=== PATIENT | female | born 1955 | race African-American/Black ===

== ENCOUNTER 2020-08-20 21:43 | Inpatient (IN) | payer MEDICARE, OTHER ==
[~2020-08-20] VITALS: Ht 167.6 cm; Wt 90.7 kg
--- NOTE | 2020-08-20 22:32 | NUR ---
[facility] AND [employer] TO ER BED 14. AAOX3. NOT IN RESP DISTRESS. AMBULATORY. BROUGHT IN FOR DANGERS TO OTHERS. PER PD REPORT, PT WAS A BULGLARY SUSPECT. SHE WAS IN ANOTHER PERSON'S HOUSE AND CLAIMING THAT THE HOUSE IS HERS. PT WAS REPORTED TO BE TALKING TO HER SELF IN THE BACK OF THE AMBULANCE ENROUTE TO THE ER. PT ALSO VERBALIZED TO THE [employer] OFFICERS THAT SHE WANT TO HURT THE FINISHER DENTURE OF THE HOUSE. PT WAS PLAED EPIFANIO 5150 HOLD FOR DANGER TO OTHERS. HOLD WRITTEN ON 08/20/20 @ 2200. PT WAS GOWN AND WITHIN SIGHT OF THE SITTER. MD WAS AT THE BEDSIDE FOR EVAL. ORDERS RECEIVED, NOTED AND CARRIED OUT
[2020-08-20 22:35] LABS: BASOPHILS % (AUTO) 0.5 % (0.0-2.0); EOSINOPHILS % (AUTO) 3.2 % (0.0-6.0); HEMATOCRIT 39 % (33-45); HEMOGLOBIN 12.6 g/dL (11.5-14.8); LYMPHOCYTES # (AUTO) 1.4 K/uL (0.8-4.8); LYMPHOCYTES % (AUTO) 26.6 % (20.0-44.0); MEAN CORPUSCULAR HGB CONC 33 g/dl (31.0-36.0); MEAN CORPUSCULAR VOLUME 87 fL (82-100); MONOCYTES # (AUTO) 0.3 K/uL (0.1-1.30); MONOCYTES % (AUTO) 6.2 % (2.0-12.0); NEUTROPHILS # (AUTO) 3.3 K/uL (1.8-8.9); NEUTROPHILS % (AUTO) 63.5 % (43.0-81.0); PLATELET COUNT (AUTO) 218 K/uL (150-450); RED BLOOD CELL COUNT(AUTO) 4.43 MIL/uL (4.0-5.2); WHITE BLOOD COUNT (AUTO) 5.3 K/uL (4.3-11.0)
--- NOTE | 2020-08-20 22:45 | NUR ---
URINE SPECIMEN SENT TO LAB
[2020-08-20 23:07] LABS: BILIRUBIN,URINE SMALL (NEGATIVE); COLOR,URINE YELLOW (YELLOW); LEUKOCYTE ESTERASE ,URINE Negative (NEGATIVE); NITRITE, URINE Positive (NEGATIVE); PROTEIN,URINE 100 mg/dl (NEGATIVE); UGLUCOSE Negative (NEGATIVE); UROBILINOGEN,URINE 0.2 EU/dL (0.2)
[2020-08-20 23:07] LABS: CALCIUM, SERUM 8.7 mg/dL (8.5-10.1); CARBON DIOXIDE 26 mmol/L (21-32); CHLORIDE 109 mmol/L (98-107); CREATININE 0.9 mg/dL (0.6-1.3); GLUCOSE 107 mg/dL (74-106); POTASSIUM 3.8 mmol/L (3.5-5.1); SODIUM SERUM 144 mmol/L (136-145); UREA NITROGEN, BLOOD 12 mg/dL (7-18)
[2020-08-20 23:27] LABS: ALANINE AMINOTRANSFERASE 24 U/L (12-78); ALBUMIN 3.2 g/dL (3.4-5.0); ALKALINE PHOSPHATASE 93 U/L (46-116); ASPARTATE AMINOTRANSFERASE 18 U/L (15-37); BILIRUBIN,DIRECT 0.1 mg/dL (0.0-0.2); BILIRUBIN,TOTAL 0.4 mg/dL (0.2-1.0); TOTAL PROTEIN, SERUM 7.3 g/dL (6.4-8.2)
[2020-08-20 23:28] LABS: ACETAMINOPHEN < 2 ug/ml (10-30); ALCOHOL, BLOOD < 3 mg/dL (0-0)
[2020-08-20 23:42] LABS: BACTERIA,URINE Many /HPF (None Seen); RBC,URINE 0-2 /HPF (0-2); SQUAMOUS EPITHELIAL CELL,UR Few /HPF (None Seen); WBC,URINE 21-50 /HPF (0-3)
[2020-08-21] MEDS ORDERED: NITROFURANTOIN/NITROFURAN MONOHYDRATE 100 MG CAPSULE PO ONE
[2020-08-21] MEDS ORDERED: NITROFURANTOIN/NITROFURAN MONOHYDRATE 100 MG CAPSULE ONE (00:51)
--- NOTE | 2020-08-21 01:29 | NUR ---
gps bed assignment: 216-2
--- NOTE | 2020-08-21 02:37 | NUR ---
REPORT GIVEN TO FA RN FOR CONTINUATION OF CARE.
--- NOTE | 2020-08-21 02:43 | NUR ---
PT WAS TRANSFERRED TO GPS RM 216-2 IN STABLE CONDITION
[2020-08-21 03:00] VITALS: BP 137/70
[2020-08-21] MEDS ORDERED: BLOOD SUGAR DIAGNOSTIC 1 EACH STRIP IN ONE (03:00)
[2020-08-21] MEDS ORDERED: MAG HYDROX/AL HYDROX/SIMETH 30 ML UDC PO PRN (03:00)
[2020-08-21] MEDS ORDERED: ACETAMINOPHEN 325 MG TABLET PO PRN (03:00)
[2020-08-21] MEDS ORDERED: MAGNESIUM HYDROXIDE 30 ML UDC PO PRN (03:00)
--- NOTE | 2020-08-21 03:43 | NUR ---
RN NOTE PATIENT IS NON COMPLAINT & UNCOOPERATIVE WITH ADMISSION ASSESSMENT PROCESS, REFUSED TO ANSWER QUESTIONS. GOT AGITATED, ANXIOUS, RESTLESS & STARTED CRYING, STATED," I SHOULDN'T BE HERE." PATIENT REFUSED MRSA SPECIMEN COLLECTION, REFUSED SKIN ASSESSMENT DESPITE OF EXPLANATIONS. ONLY ALLOWED FACE PICTURE & BLOOD SUGAR CHECK. PATIENT HAD SNACK, TOLERATED WELL & WENT TO SLEEP.
--- NOTE | 2020-08-21 04:33 | NUR ---
GPS TILE APPLICATOR NOTES: RECEIVED PATIENT FROM ER ORIGINALLY HOMELESS. PATIENT ARRIVED ON THIS UNIT AT 0245 VIA W/C WITH AN ER ESCORT. PATIENT ADMITTED ON A 5150 HOLD FOR DTO. HOLD WAS PLACED ON 08/20/20 @ 2200. PER HOLD, OFFICERS WERE CALLED FOR A POSSIBLE BURGLARY SUSPECT. UPON ARRIVAL PATIENT TOLD OFFICERS SHE WANTED TO HURT THE HOMEOWNER. STATING THEY ARRIVED TOO SOON BEFORE SHE COULD HURT THE HOMEOWNER. DURING HER TRANSPORTATION TO THE HOSPITAL, PATIENT BEGAN TALKING TO SELF AND HEARING VOICES. PATIENT STATED HER UNCLE WAS ACROSS THE STREET BUT NO ONE WAS THERE. UPON FACE TO FACE EVALUATION, PATIENT WAS A/O X1, BLUNTED AFFECT, DISHEVELED, UNKEPT, MALODOROUS, IMPULSIVE, ANXIOUS, RESTLESS, AGITATED AND UNCOOPERATIVE, STATING "I SHOULDN'T BE HERE". REFUSING REDIRECTION. NO S/S OF DISTRESS. RESPIRATION EVEN AND UNLABORED WITH EQUAL RISE AND FALL OF THE CHEST, ON ROOM AIR. DENIES SI AND PAIN AT THIS TIME. ACCU CHEK DONE, BS 109MG/DL. PATIENT REFUSED TO SIGN ALL ADMISSION PAPERWORK AND REFUSED SKIN ASSESSMENT. PATIENT ADVISED OF HER HOLD AND PATIENT RIGHT HANDBOOK AND A GUIDE TO PRESCRIPTION MEDICATION BOOKLET GIVEN. PATIENT IS UNDER THE PSYCHIATRIC CARE OF DR EVANS AND [facility] [place]. PATIENT BELONGINGS WERE INVENTORIED AND CHECKED FOR CONTRABAND. CONTRABAND REMOVED AND STORED IN PATIENT HALLWAY LOCKER. PATIENT ADVANCE DIRECTIVES PREFERENCES, IMMUNIZATIONS QUESTIONER NECESSARY PAPERWORK COMPLETED. PATIENT ORIENTED TO ROOM, FLOOR, AND STAFF. PATIENT EDUCATED ON THE USE OF CALL CHAWLA. PATIENT BED SIDE RAILS UP X2 FOR SAFETY. PATIENT BED IS LOCKED AND IN LOWEST POSITION. ALL PATIENT NEEDS HAVE BEEN MET AT THIS TIME. PATIENT IS CURRENTLY SLEEPING COMFORTABLY IN BED. WILL CONTINUE TO MONITOR Q15 FOR SAFETY, MOOD AND BEHAVIOR.
[2020-08-21] MEDS ORDERED: IBUP-2859 PO (05:20)
[2020-08-21] MEDS ORDERED: IBUPROFEN SUSP 100 MG/5 ML UDC PO SCH (06:00)
[2020-08-21] MEDS ORDERED: IBUPROFEN SUSP 100 MG/5 ML UDC PO PRN (06:00)
--- NOTE | 2020-08-21 06:31 | NUR ---
RN NOTE PATIENT REFUSED TO ANSWER & TO GIVE ANY FAMILY INFORMATION TO NOTIFY ABOUT HER ADMISSION AT [facility]. THERE IN NO FAMILY INFO FOUND IN PATIENT'S CHART WELL.
[2020-08-21 08:00] VITALS: BP 156/81
[2020-08-21 16:00] VITALS: BP 147/82
--- NOTE | 2020-08-21 18:05 | NUR ---
RN NOTES PATIENT RESTING IN BED, A/O X3, ON R/A. SAFETY PRECAUTIONS IN PLACE.
[2020-08-21 20:21] VITALS: BP 130/71
[2020-08-21] MEDS ORDERED: TEMAZEPAM 7.5 MG CAPSULE PO PRN (21:00)
[2020-08-21] MEDS: CEPHALEXIN MONOHYDRATE 500 MG CAPSULE PO SCH (21:29)
[2020-08-22 07:58] LABS: ALBUMIN 2.9 g/dL (3.4-5.0); BILIRUBIN,TOTAL 0.7 mg/dL (0.2-1.0); CALCIUM, SERUM 8.7 mg/dL (8.5-10.1); CREATININE 0.6 mg/dL (0.6-1.3)
[2020-08-22 08:00] VITALS: BP 140/74
[2020-08-22 08:01] LABS: CHOLESTEROL 186 mg/dL (<200); HDL CHOLESTEROL 60 mg/dL (40-60); LDL 111 mg/dL (0-99); TRIGLYCERIDES 80 mg/dL (30-150)
[2020-08-22] MEDS: CEPHALEXIN MONOHYDRATE 500 MG CAPSULE PO SCH ×2 (08:24→21:13)
[2020-08-22 08:59] LABS: POTASSIUM 4.2 mmol/L (3.5-5.1)
--- NOTE | 2020-08-22 10:53 | NUR ---
Point of Contact: SW contacted the pts friend, Jose ([phone]), and was unable to make contact. SW left a voicemail and asked for a call back.
--- NOTE | 2020-08-22 12:19 | NUR ---
Initial Discharge Plan: Pt is currently homeless and states that she will go live with a friend. SW will work with the pt and the MD regarding appropriate discharge planning. SW will form a safe and proper discharge.
[2020-08-22 16:07] VITALS: BP 125/78
[2020-08-22 20:00] VITALS: BP 124/84
[2020-08-22] MEDS: risperiDONE 1 MG TABLET PO SCH ×2 (23:00→23:41)
--- NOTE | 2020-08-22 23:45 | NUR ---
GPS-RN NOTES: MED REFUSAL PATIENT REFUSED SCHEDULED RISPERDAL FOR TONIGHT. DESPITE OF EXPLANATION THE RISKS AND BENEFITS PATIENT CONTINUED TO REFUSE. PATIENT STATED "NO, I DON'T NEED IT" THERE'S NOTHING WRONG WITH ME."
[2020-08-23 08:00] VITALS: BP 136/71
[2020-08-23] MEDS: CEPHALEXIN MONOHYDRATE 500 MG CAPSULE PO SCH ×2 (08:05→21:16)
[2020-08-23] MEDS: risperiDONE 1 MG TABLET PO SCH ×3 (08:05→21:00)
[2020-08-23 16:00] VITALS: BP 144/76
[2020-08-23 20:09] VITALS: BP 132/69
[2020-08-23] MEDS ORDERED: risperiDONE 1 MG TABLET PO SCH (21:00)
--- NOTE | 2020-08-23 21:18 | NUR ---
GPS-RN NOTES: MED REFUSAL PATIENT REFUSED SCHEDULED RISPERDAL FOR TONIGHT. DESPITE OF EXPLANATION THE RISKS AND BENEFITS PATIENT CONTINUED TO REFUSE. PATIENT STATED "NO, I DON'T NEED IT" THERE'S NOTHING WRONG WITH ME." DR. EVANS IN THE UNIT MADE AWARE.
[2020-08-24] MEDS: CEPHALEXIN MONOHYDRATE 500 MG CAPSULE PO SCH ×2 (07:47→21:12)
[2020-08-24] MEDS: risperiDONE 1 MG TABLET PO SCH ×2 (07:51→21:00)
[2020-08-24 08:00] VITALS: BP 148/63
[2020-08-24 15:50] VITALS: BP 140/63
[2020-08-24 20:19] VITALS: BP 154/80
--- NOTE | 2020-08-24 21:15 | NUR ---
GPS-RN NOTES: MED REFUSAL PATIENT REFUSED SCHEDULED RISPERDAL PO FOR TONIGHT. ENCOURAGED, DESPITE OF EXPLANATION THE RISKS AND BENEFITS PT. CONTINUED TO REFUSE. PATIENT STATED "NO, I DON'T TAKE IT" THERE'S NOTHING WRONG WITH ME." WILL CONTINUE WITH CARE .
[2020-08-25 08:00] VITALS: BP 150/98
[2020-08-25] MEDS: risperiDONE 1 MG TABLET PO SCH ×2 (08:12→21:00)
[2020-08-25] MEDS: CEPHALEXIN MONOHYDRATE 500 MG CAPSULE PO SCH ×2 (08:14→21:03)
[2020-08-25 16:12] VITALS: BP 145/65
[2020-08-25 19:55] VITALS: BP 141/92
[2020-08-25 20:10] VITALS: BP 141/92
--- NOTE | 2020-08-25 21:36 | NUR ---
GPS-RN NOTES: MED REFUSAL PATIENT REFUSED SCHEDULED RISPERDAL PO FOR TONIGHT at 2100. ENCOURAGED, DESPITE OF EXPLANATION THE RISKS AND BENEFITS PT. CONTINUED TO REFUSE. PATIENT STATED "NO, I DON'T NEED IT, HOW MANY TIMES I HAVE TOLD YOU ALL THAT I WOULD NOT TAKE THIS MEDICINE." WILL CONTINUE WITH CARE .
[2020-08-26 08:00] VITALS: BP 133/61
[2020-08-26] MEDS: risperiDONE 1 MG TABLET PO SCH ×3 (08:27→21:30)
[2020-08-26] MEDS: CEPHALEXIN MONOHYDRATE 500 MG CAPSULE PO SCH (08:30)
[2020-08-26 16:00] VITALS: BP 136/73
[2020-08-26 20:00] VITALS: BP 134/61
--- NOTE | 2020-08-26 20:10 | NUR ---
GPS RN OPENING NOTES: RECEIVED PATIENT AWAKE IN BED, VERBALLY RESPONSIVE, NO COMPLAIN OF PAIN AND DISCOMFORT AT THIS TIME, PATIENT APPEARS CALM, BED IN LOW POSITION , CALL LIGHTS WITHIN REACH, KEPT CLEAN AND DRY, WILL CONTINUE TO MONITOR.
--- NOTE | 2020-08-26 21:30 | NUR ---
RN NOTES: PATIENT REFUSED ROUTINE RESPIRDAL STATE THAT SHE HAS AN ALLERGY ON THE MEDICINE, EXPLAINED THAT SHE DOES NOT HAVE KNOWN ALLERGY TO THE MEDICINE, OFFERED 2X BUT STRONGLY REFUSED MEDICATIONS
[2020-08-27 08:00] VITALS: BP 143/91
--- NOTE | 2020-08-27 08:59 | NUR ---
Family Contact: SW contacted the pts father, Felix ([phone]), and was unable to leave a voicemail due to the dial tone.
--- NOTE | 2020-08-27 09:00 | NUR ---
Family Contact: SW called the pts friend, Cliff ([phone]), and left a voicemail stating that the SW would like to speak to him regarding the pt.
--- NOTE | 2020-08-27 09:00 | NUR ---
RN NOTE- PT ANXIOUS, REFUSING MEDS, ALERT ORIENTED TO PERSON PLACE, PARANOID DELUSIONS, WITHDRAWN ISOLATIVE
--- NOTE | 2020-08-27 09:01 | NUR ---
Family Contact: SW contacted the pts friend, Jose ([phone]), and was unable to make contact and left a voicemail message.
--- NOTE | 2020-08-27 12:21 | NUR ---
Probable Cause Hearing: Pts 5250 hold was upheld for grave disability. Psychologist Military Personnel did not find probable cause for danger to others.
--- NOTE | 2020-08-27 13:16 | NUR ---
Contact [facility]: Per pt request, ROCCO faxed Writ to [facility] (fax # [phone]).
--- NOTE | 2020-08-27 15:48 | NUR ---
ROCCO Referral to [facility]: ROCCO faxed a referral to [facility] fax #[phone].
[2020-08-27 16:00] VITALS: BP 135/67
[2020-08-27 20:00] VITALS: BP 121/69
[2020-08-27] MEDS: risperiDONE 1 MG TABLET PO SCH ×2 (21:00→21:17)
[2020-08-27] MEDS: LORAZEPAM 0.5 MG TABLET PO PRN (21:42)
--- NOTE | 2020-08-27 21:42 | NUR ---
GPS RN NOTE - ATIVAN PATIENT REFUSED RISPERIDONE STATING SHE WAS ALLERGIC TO IT AND REACTION INCLUDES COUGHING. RN STATED THAT PATIENT DOES NOT HAVE ANY ALLERGIES NOTED IN DOCUMENTATION. OFFERED RISPERIDONE X2, PATIENT REFUSED. ADMINISTERED ATIVAN REQUESTED AND ORDERED.
--- NOTE | 2020-08-28 00:15 | NUR ---
GPS RN NOTE PATIENT SEEN BY DR. EVANS: NEW ORDER FOR ABILIFY 5MG PO Q12H AND D/C RISPERDAL 0.5MG PO Q12H. DR. EVANS SIGNED RIESE PAPERWORK.
--- NOTE | 2020-08-28 06:11 | NUR ---
GPS RN CLOSING NOTE ALERT ORIENTED TO PERSON PLACE, PARANOID, DELUSIONS, WITHDRAWN ISOLATIVE. PT LYING IN BED. TOLERATING ROOM AIR WELL WITH NO SOB. NO S/SX OF PAIN AT THIS TIME. NO ACUTE DISTRESS NOTED. NON MED COMPLIANT WITH PSYCH MEDS DURING SHIFT. SAFETY MEASURES IN PLACE: BED IN LOWEST LOCKED POSITION, SIDE RAILS UPX2. WILL ENDORSE YASH TO ONCOMING MORNING RN.
[2020-08-28 08:00] VITALS: BP 124/64
--- NOTE | 2020-08-28 08:54 | NUR ---
ROCCO Referral to [facility]: G[facility]nesis Logan accepted pt. ROCCO waiting on discharge date from doctor.
[2020-08-28] MEDS: ARIPIPRAZOLE 5 MG TABLET PO SCH ×2 (12:00→23:42)
--- NOTE | 2020-08-28 12:41 | NUR ---
RN NOTE: MEDICATION REFUSAL PT REFUSED 1300 ABILIFY. PT STATES SHE DOES NOT NEED IT AND THERE IS NOTHING WRONG WITH HER. ATTEMPTED TO EDUCATE PT RE IMPORTANCE OF MEDICATION COMPLIANCE AND PURPOSE OF ABILIFY. PT CONT'D TO REFUSE X 3. RIESE HEARING TO BE SCHEDULED. WILL CONT TO MONITOR PT FOR SAFETY AND BEHAVIOR PER PROTOCOL
[2020-08-28 20:00] VITALS: BP 124/66
[2020-08-28] MEDS: LORAZEPAM 0.5 MG TABLET PO PRN (21:05)
--- NOTE | 2020-08-29 06:38 | NUR ---
GPS RN NOTE COVID 19 ANTIGEN SPECIMEN COLLECTED AND SENT TO LAB. PT COMPLIED WELL.
[2020-08-29 08:00] VITALS: BP 125/59
--- NOTE | 2020-08-29 09:00 | NUR ---
RN NOTE: PT FOR D/C. REFUSED MEDS. FILED WRIT. DR. EVANS RELEASING PT. PT CALM AND DIRECTABLE.
--- NOTE | 2020-08-29 10:05 | NUR ---
Discharge Note: Pt will be discharged to [facility] ([facility]) located at [address] [place] [address]; ([phone]). Pt will be transported via [facility] at 12PM. SW did not have anyone to contact. Upon discharge, pt appears to be in a dysphoric mood and presented with a distressed affect. Pt denies both suicidal and homicidal ideation as well as auditory and visual hallucinations. Pt appears to be alert and oriented x3 (time, place, and self). Pt appears to be ambulatory with an unsteady gait. Pt appears to be disheveled yet appropriately dressed. SW provided patient with the 2019 [facility] Longterm Program list. SW provided patient with a copy of the [facility] homeless directory which provides information on locations for hot meals, sack lunches, food pantries, and showers. SW provided an additional list of mental health clinics: [facility] [address] [place] [address] ([phone]); [facility] [address] [place] [address] ([phone]); a list of medical clinics; [facility] [address] [facility] [address], [place]. [place], ; [facility] [address] [facility] [address], [place]. ROCCO Provided [facility] [address] [place] [address]: ([phone]). Patient was provided with a brief substance abuse intervention and referred to the following substance abuse programs: [facility] Substance Abuse Self-helpline ([phone]); [facility] [address] [place] [address] ([phone]); [facility] [address] [facility] [address] ([phone]); [facility] Rehabilitation [facility] ([phone]); [facility] ([phone]); [facility] ([phone]); [facility] ([phone]). also provided the pt with smoking cessation referrals. Pt will continue to be under the care of psychiatrist, Dr. Holden, located at [address] [place] [address]; and telecommunications specialist, Dr. Bhardwaj, located at [address] [place] [address]; . The homeless waiver, choice of vendor form, and the multidisciplinary exit care form were done, printed, signed, and given to the patient.
[2020-08-29] MEDS: ARIPIPRAZOLE 5 MG TABLET PO SCH (12:00)
--- NOTE | 2020-08-29 15:27 | NUR ---
Cancelled Discharge: Pt refused to go to [facility] located at [address] [facility] [address] on 08/29/2020. SW was unable to make homeless discharge because pt was going to return to the residence where 5150 was initially made for break in. Pt will continue to stay at [facility] for stabilization. WRIT has been refiled on behalf of pts by nurses on 08/29/2020. ROCCO will follow up with MD and pt regarding discharge plan and discharge date.
[2020-08-29] MEDS: LORAZEPAM 0.5 MG TABLET PO PRN (15:52)
--- NOTE | 2020-08-29 15:52 | NUR ---
RN NOTE- PT TO BE DC TO [facility] BUT WHEN AMBULANCE STAFF ARRIVED, PT REFUSED TO GO TO SNF. STATED 'NO ONE TOLD ME I WAS GOING TO FACILITY. I THOUGHT I WAS GOING HOME. " PT BECAME AGITATED AND WANTED TO DC TO STREET,.. STATED SHE'D GO BACK TO THE HOUSE IN [place]./ ACCORDING TO HOLD, PT WAS FOUND IN A HOME THAT WAS NOT HER OWN IN [place]. THIS CAUSED CONCERN FOR THIS RN AND I PHONED. DR EVANS. DR EVANS STATED THAT SHE WAS DC AND THERE WASN'T ANYTHING WE COULD DO. THIS RN FELT STRONGLY ABOUT THE PTS POSSIBLE POTENTIAL FOR A RETURN TO THE SAME PROPERTY AND AGGRESSIVE BEHAVIORS. THIS RN PHONED DR BOGGS AND ASKED FOR GUIDANCE. DR BOGGS NOTIFIED THIS RN TO CHECK AND SEE IF WRIT STILL FILED THAT PT HAD FILED AGAINST [facility]. DISCOVERED WRIT WAS CANCELLED BUT WILL BE REFILED. [address]. SECURITY NOTIFIED,, STAFF INFORMED PT SHE WAS STILL ON HOLD AND SHE WAS GIVEN ATIVAN 1 MG FOR HER AGITATION AND ANXIETY. PT IN ROOM, BED ELEVATED. MONITORING PT.
[2020-08-29 16:00] VITALS: BP 145/69
--- NOTE | 2020-08-29 16:18 | NUR ---
RN NOTE- [facility]OR NOTIFIED OF CANCELLED DC
--- NOTE | 2020-08-29 20:00 | NUR ---
GPS OPENING NOTE: PER REPORT FROM JENNY MARTINEZ NON-COMPLIANT WITH MEDICATION ADMINISTRATION AND PLAN OF CARE. PER REPORT DISCHARGE PLANNED FOR TODAY CANCELLED FOR TODAY AND HOLD CONTINUED. AT THIS TIME. PT ISOLATIVE AND WITHDRAWN. PARANOID. AT THIS TIME PT DENIES SI/HI AT THIS TIME. LAYING IN BED IN NO APPARENT DISTRESS. WILL CONT TO MONITOR FOR SAFETY AND BEHAVIOR PER PROTOCOL.
[2020-08-29 20:29] VITALS: BP 141/61
--- NOTE | 2020-08-29 22:10 | NUR ---
CARE ENDORSED TO NURSE CHIQUITA.
[2020-08-30 08:00] VITALS: BP 132/59
--- NOTE | 2020-08-30 09:40 | NUR ---
RN-CO: NOTIFIED DR VASQUES REGARDING THE WRIT HEARING OF MS CJ FARIAS THURSDAY 08/31 @ 0118.
--- NOTE | 2020-08-30 10:45 | NUR ---
RN-CO:INFORMED DR VASQUES REGARDING LINK IN THE COURT ([place]) .
[2020-08-30] MEDS: ARIPIPRAZOLE 5 MG TABLET PO SCH ×2 (12:00)
--- NOTE | 2020-08-30 12:12 | NUR ---
RN-NOTES PATIENT REFUSED ABILIFY 5MG P.O DESPITE EXPLANATIONS RISK AND BENEFITS. PATIENT GETS IRRITABLE AND ANGRY. OFFERED X3
[2020-08-30 16:09] VITALS: BP 141/65
[2020-08-30 20:19] VITALS: BP 160/76
[2020-08-30 20:29] VITALS: BP 160/76
[2020-08-30 22:15] VITALS: BP 144/79
--- NOTE | 2020-08-31 00:09 | NUR ---
RN NOTE: MEDICATION REFUSAL PATIENT REFUSED ABILIFY 5MG P.O AT 0000 DESPITE OF RISK AND BENEFITS EXPLANATIONS. PATIENT GETS IRRITABLE AND ANGRY. OFFERED X3
[2020-08-31 08:00] VITALS: BP 120/71
--- NOTE | 2020-08-31 11:18 | NUR ---
Writ hearing: Pts writ was upheld.
[2020-08-31] MEDS: ARIPIPRAZOLE 5 MG TABLET PO SCH ×2 (12:10)
[2020-08-31 16:00] VITALS: BP 122/60
--- NOTE | 2020-08-31 18:22 | NUR ---
RN-NOTES PATIENT IN THE ROOM LYING IN BED,GUARDED,CALM,NO ACUTE DISTRESS NOTED. ENDORSED TO THE CHARGE NURSE.
[2020-08-31 21:01] VITALS: BP 144/69
[2020-09-01] MEDS: ARIPIPRAZOLE 5 MG TABLET PO SCH ×3 (01:03→23:21)
--- NOTE | 2020-09-01 07:08 | NUR ---
GPS RN NOTES: PATIENT IS CURRENTLY SLEEPING IN BED. PATIENT SLEPT 8HR THIS SHIFT. NO S/S OF DISTRESS. RESPIRATION EVEN AND UNLABORED WITH EQUAL RISE AND FALL OF THE CHEST, ON ROOM AIR. ALL PATIENT CARE NEEDS HAVE BEEN MET AT THIS TIME. WILL CONTINUE TO MONITOR Q15MIN FOR SAFETY, MOOD AND BEHAVIOR AND ENDORSE TO AM SHIFT.
[2020-09-01 08:00] VITALS: BP 157/70
[2020-09-01 16:05] VITALS: BP 146/68
[2020-09-01 20:10] VITALS: BP 146/64
[2020-09-01 20:36] VITALS: BP 146/64
--- NOTE | 2020-09-02 01:20 | NUR ---
RN NOTE PATIENT IS SLEEPING COMFORTABLY. NO ACUTE CHANGES NOTED.
[2020-09-02 08:00] VITALS: BP 128/75
--- NOTE | 2020-09-02 09:00 | NUR ---
RN NOTE- WITHDRAWN, ISOLATIVE TEARFUL AND ALSO CAN BE IRRITABLE AND ARGUMENTATIVE BEHAVIOR. PO INTAKE GOOD WILL CONT.MONITORING FOR SAFETY AND BEHAVIOR.
[2020-09-02] MEDS: ARIPIPRAZOLE 5 MG TABLET PO SCH (12:38)
[2020-09-02 16:00] VITALS: BP 151/63
[2020-09-02 20:00] VITALS: BP 123/59
[2020-09-03] MEDS: ARIPIPRAZOLE 5 MG TABLET PO SCH ×3 (00:39→21:08)
[2020-09-03 08:00] VITALS: BP 127/76
--- NOTE | 2020-09-03 09:00 | NUR ---
RN NOTE- PT SOMEWHAT WITHDRAWN, DENIES SI/HI PO INTAKE GOOD. MED COMPLIANT. WILL CONT.MONITORING FOR SAFETY AND BEHAVIOR.
[2020-09-03 16:00] VITALS: BP 155/76
[2020-09-03 18:32] VITALS: BP 135/71
--- NOTE | 2020-09-03 18:33 | NUR ---
BP 135/71 HR 73
[2020-09-03 20:00] VITALS: BP 120/60
--- NOTE | 2020-09-04 06:31 | NUR ---
RN CLOSING NOTE PATIENT SLEEPING IN ROOM, NO S/S OF DISTRESS OR SOB NOTED, BREATHING EVEN AND UNLABORED. PT WITHDRAWN, ISOLATIVE AND TEARFUL AT THE BEGINNING OF SHIFT. PATIENT WAS MED COMPLIANT. MEDICATIONS GIVEN ORDERED. PATIENT NEEDS MET THROUGHOUT SHIFT. PATIENT SLEPT 8 HRS. SAFETY MEASURES KEPT IN PLACE: BED LOCKED IN LOWEST POSITION, SIDE RAILS UP X 2, Q15 MIN CHECKS FOR SAFETY BY STAFF. WILL ENDORSE TO DAY SHIFT NURSE FOR CONTINUITY OF CARE
[2020-09-04 08:00] VITALS: BP 140/69
[2020-09-04] MEDS: ARIPIPRAZOLE 5 MG TABLET PO SCH ×2 (08:38→20:40)
[2020-09-04 16:00] VITALS: BP 153/93
[2020-09-04 20:00] VITALS: BP 127/62
[2020-09-05 08:00] VITALS: BP 142/71
[2020-09-05] MEDS: ARIPIPRAZOLE 5 MG TABLET PO SCH ×2 (10:43→21:22)
--- NOTE | 2020-09-05 12:05 | NUR ---
Point of contact: ROCCO was contacted by pts friend Jose who reports that pt can be discharged back to his home located at [address] [place] [address]. Jose reports that he may be able to pick and shovel worker pt from hospital upon discharge. ROCCO will keep Jose updated about discharge date.
--- NOTE | 2020-09-05 12:06 | NUR ---
Point of contact: Pt was contacted by pts friend Zoraida ([phone]) who reports that pt cannot stay with her in [place]. Zoraida reports that she is currently in [place]. SW will follow up with pt and MD regarding alternative discharge plans.
[2020-09-05 16:00] VITALS: BP 143/81
--- NOTE | 2020-09-05 16:42 | NUR ---
Point of contact: ROCCO was contacted by pts friend Jose ([phone]) to inform him of pts discharge and inquire if he can pick pt up upon discharge. SW left a voicemail and will attempt to call pts friend at a later time.
[2020-09-05 20:00] VITALS: BP 149/72
[2020-09-05 20:20] VITALS: BP 142/72
[2020-09-06 08:00] VITALS: BP 139/66
[2020-09-06] MEDS: ARIPIPRAZOLE 5 MG TABLET PO SCH (08:17)
--- NOTE | 2020-09-06 09:24 | NUR ---
Pt. with an order to D/C hold and D/C to friends home and to follow up with psych and medical doctors. Social workers provided a mental health clinics and was referred to [facility]. Dr. Bhardwaj made aware of the discharge and reconciled the meds. Belongings ready and pt. signed the discharge papers. Pt. without distress, denies suicidal and homicidal. Addendum: 09/06/20 at 1513 by RAGHAVENDRA MULLEN RN Belongings given and pt. signed the discharge papers.
--- NOTE | 2020-09-06 15:00 | NUR ---
Discharge: Pt will be discharged back to her friends home located at [address] [place] [address]. Pts friend Jose ([phone]) will pick pt up upon discharge at 3PM. Upon discharge, the pt appeared to be in a euthymic mood and presented with a calm affect. Pt appeared to be alert and oriented x4 (time, place, self and situation). Pt denied both suicidal and homicidal ideation as well as auditory and visual hallucinations. . Pt was provided with homeless resources such as shelters, food freeman, showers, hot meals, health clinics, mental health clinics and substance abuse referrals. SW provided patient with the [phone] [facility] Detention Program list. SW provided patient with a copy of the [facility] homeless directory which provides information on locations for hot meals, sack lunches, food pantries, and showers. SW provided an additional list of mental health clinics: [facility] [address] [place] [address] ([phone]); [facility] [address] [place] [address] ([phone]); a list of medical clinics; [facility] [address] [facility] [address], [place]. [place], ; [facility] [address] [facility]. ROCCO Provided [facility] [address] [place] [address]: ([phone]). Patient was provided with a brief substance abuse intervention and referred to the following substance abuse programs: [facility] Substance Abuse Self-helpline ([phone]); [facility] [address] [place] [address] ([phone]); [facility] [address] [facility] [address] ([phone]); [facility] Rehabilitation Program ([phone]); [facility] ([phone]); [facility] ([phone]); [facility] ([phone]). Pt was referred to [facility] Department of Mental Health located at [address] [facility], [place] [address]; ; fax was sent to: , for psychiatric services. Pt was also referred to [facility] located at [address] [facility], [place], [place]; ; for medical services. Pt signed the homeless waiver and the multidisciplinary exit care form was done, printed, signed, and given to the patient.
--- NOTE | 2020-09-06 15:10 | NUR ---
Pt. left the unit with belongings and being picked up by friend Jose [place]. Left without distress, ambulatory and escorted by staffs to the lobby. Instructed on meds to continue and verbalizes understanding and advised to made a follow up with the psych and medical doctors and agreed.
== END 2020-09-06 15:10 | disposition home or self-care (01) | DRG 885 ==
LOC: ER 21:45 → GPS 08-21 02:03
PROVIDERS: ADMIT Psychiatry & Neurology Psychiatry; ATTEND Nurse Practitioner Acute Care
DX: F29 Unspecified psychosis not due to a substance or known physiological condition (principal); F23 Brief psychotic disorder; E44.1 Mild protein-calorie malnutrition; F41.9 Anxiety disorder, unspecified; Z20.822 Contact with and (suspected) exposure to COVID-19; R73.9 Hyperglycemia, unspecified; E66.9 Obesity, unspecified; F03.90 Unspecified dementia, unspecified severity, without behavioral disturbance, psychotic disturbance, mood disturbance, and anxiety; F32.9 Major depressive disorder, single episode, unspecified; Z59.0 Homelessness; Z68.32 Body mass index [BMI] 32.0-32.9, adult; F19.10 Other psychoactive substance abuse, uncomplicated; Z91.19 Patient's noncompliance with other medical treatment and regimen; E88.09 Other disorders of plasma-protein metabolism, not elsewhere classified
CPT/HCPCS: 36415; 80048-TC; 80053-TC; 80061-TC; 80076-TC; 81001; 82962-TC; 85025-TC; 87081-TC; 87086-TC; C9803; G0480